=== PATIENT | male | born 1975 | race African-American/Black ===

== ENCOUNTER 2022-11-21 04:06 | Emergency (ER) | payer MEDICAID ==
[~2022-11-21] VITALS: Ht 182.9 cm; Wt 75.0 kg
[2022-11-21 04:08] VITALS: BP 149/99; PULSE 100; RESP 18; O2SAT 98
--- NOTE | 2022-11-21 04:13 | NUR ---
DORIAN WONG IRRIGATED WOUND IN ER BED # 13 BLEEDING CONTROLLED IN TRIAGE ROOM # 13
[2022-11-21] MEDS ORDERED: tetanus & diphtheria toxoid (Td) vaccine 0.5ml IMVAC ONE (06:25)
[2022-11-21] MEDS ORDERED: LIDOcaine 1% 30ml preserv. free vial IJ STA (06:37)
[2022-11-21] MEDS ORDERED: CEPH-585 PO (07:14)
--- NOTE | 2022-11-21 07:27 | NUR ---
floating and helping with patient
[2022-11-21] MEDS ORDERED: TETanus/Pertussis (Acell)/Diphther VAC/PF (Tdap-Adult) 0.5ml syringe IMVAC ONE (07:35)
[2022-11-21 07:44] VITALS: TEMP 97.8
--- NOTE | 2022-11-21 10:21 | NUR ---
PT WAS TREATED AND RELEASED BY ANOTHER RN. NO INTERACTION WITH THIS PT.
== END 2022-11-21 07:46 ==
LOC: ER 04:07
DX: S61.012A Laceration without foreign body of left thumb without damage to nail, initial encounter (principal); Z79.899 Other long term (current) drug therapy; X58.XXXA Exposure to other specified factors, initial encounter; Y93.89 Activity, other specified; Y92.89 Other specified places as the place of occurrence of the external cause; Y99.8 Other external cause status
CPT/HCPCS: 12001; 90471; 90715; 99283; J7030